=== PATIENT | male | born 1935 | race Caucasian/White ===

== ENCOUNTER 2016-12-04 07:19 | Day surgery (SDC) | payer MEDICARE, OTHER ==
[2016-12-04] MEDS ORDERED: POLYMYXIN B SULFATE 500,000 UNITS, BACITRACIN 50,000 UNITS, NORMAL SALINE 20 ML MC ONE ×3 (07:45)
[2016-12-04] MEDS ORDERED: BUPIVACAINE PF 0.5% 30 ML VIAL ONE (08:07)
[2016-12-04] MEDS ORDERED: FENTANYL CITRATE 100 MCG/2 ML AMPUL ONE (09:45)
[2016-12-04] MEDS ORDERED: MIDAZOLAM HCL 2 MG/2 ML VIAL ONE (09:45)
[2016-12-04] MEDS ORDERED: SEVOFLURANE 250 ML BOTTLE IH ONE (14:33)
[2016-12-04] MEDS ORDERED: PROPOFOL 200 MG/20 ML BOTTLE IV ONE (14:33)
[2016-12-04] MEDS ORDERED: GLYCOPYRROLATE 0.2 MG/ML VIAL MC ONE (14:33)
[2016-12-04] MEDS ORDERED: CEFAZOLIN 1 G VIAL MC ONE (14:34)
[2016-12-04] MEDS ORDERED: EPHEDRINE SULFATE 50 MG/ML AMPUL MC ONE (14:34)
[2016-12-04] MEDS ORDERED: ONDANSETRON 4 MG/2 ML VIAL IV ONE (14:34)
[2016-12-04] MEDS ORDERED: IV LACTATED RINGERS SOLUTION 1,000 ML BAG IV ONE (14:35)
[2016-12-04] MEDS ORDERED: KETOROLAC TROMETHAMINE 30 MG INJ IM ONE (14:35)
[2016-12-04] MEDS ORDERED: DEXAMETHASONE SOD PHOSPHATE 4 MG INJ IV ONE (14:35)
[2016-12-04] MEDS ORDERED: LIDOCAINE HCL 1% 20 ML VIAL MC ONE (14:37)
== END 2016-12-04 12:50 | disposition home or self-care (01) ==
LOC: DS 07:19
PROVIDERS: ATTEND Orthopaedic Surgery
DX: G56.02 Carpal tunnel syndrome, left upper limb (principal); I10 Essential (primary) hypertension; F03.90 Unspecified dementia, unspecified severity, without behavioral disturbance, psychotic disturbance, mood disturbance, and anxiety; E66.9 Obesity, unspecified
CPT/HCPCS: 64721; A4649; A4663; J0690; J1100; J1885; J2250; J2405; J3010; J3490 ×7; J7120 ×2